=== PATIENT | male | born 1955 | race Two or more races ===

== ENCOUNTER 2020-03-01 13:35 | Emergency (ER) | payer MEDICARE, MEDICAID, OTHER ==
--- NOTE | 2020-03-01 13:59 | EDM.PDOC ---
ED HPI GENERAL MEDICAL PROBLEM - General Chief Complaint: General Stated Complaint: fall, pain Time Seen by Provider: 03/01/20 13:45 Source of Information: Reports: Patient, EMS, Old Records ([facility] chart/EMR), Other (belt fixer/POACammy). Denies: EMS Notes Reviewed (Not available at time of dictation) History Limitations: Reports: No Limitations - History of Present Illness INITIAL COMMENTS - FREE TEXT/NARRATIVE: The patient was brought to the emergency room via ambulance with cinder pitman accompaniment with no treatment in route. He is a somewhat poor historian with majority of history taken from his POA/caregiver, Cammy. Patient apparently stumbled near his bed at about 10 AM on 02/25 resulting in a fall with an additional fall despite use of his crutches later that afternoon. He has had progressive 10/10 left knee and left shoulder pain since that time with the patient refusing to come to this facility for evaluation until today. In addition, note increasing leg swelling and pain with previous history of recurrent postoperative osteomyelitis and multiple previous left knee surgeries as below. He denies any head injury, loss of consciousness, neck/back pain, change in his neurological status, or other complaints or injuries. The patient denies any chest pain/pressure, heart flutter, dizziness, orthostasis, orthopnea, diaphoresis, paresthesias, recent decreased exercise tolerance, or any other anginal-type symptoms. No recent history of abdominal pain, heartburn, nausea, diarrhea, melena, gross hematochezia, or any food intolerance, including fatty foods, etc.. The patient also denies any recent fever, cough, wheezing, dyspnea, etc.. He did take his regular scheduled medications this morning, including Celebrex, with additional 650 mg of Tylenol taken at 9 AM this morning Onset: Sudden Onset Date: 02/26/20 Onset Time: 10:00 Duration: Constant, Getting Worse Location: Reports: Upper Extremity, Left, Lower Extremity, Right. Denies: Head, Face, Neck, Chest, Abdomen, Back, Pelvis, Upper Extremity, Right, Radiates to Quality: Reports: Same as Previous Episode, Stabbing, Throbbing Severity: Severe Improves with: Reports: None Worsens with: Reports: None Context: Reports: Trauma (As above). Denies: Sick Contact Associated Symptoms: Reports: Confusion (Stable mental deficits), Rash. Denies: Chest Pain, Cough, Diaphoresis, Fever/Chills, Headaches, Loss of Appetite, Malaise, Nausea/Vomiting, Seizure, Shortness of Breath, Syncope, Weakness Treatments TRACK LABORER: Reports: Acetaminophen, NSAIDS, Other Medication(s) (Morning medications) Left Shoulder Pain Score (Numeric/FACES): 10 Left Knee Pain Score (Numeric/FACES): 10 - Related Data Allergies Allergy/AdvReac Type Severity Reaction Status Date / Time No Known Allergies Allergy Verified 03/01/20 13:37 Home Meds: Home Meds Acetaminophen 650 mg PO Q6H PRN 03/01/20 [History] Celecoxib 1 cap PO DAILY 03/01/20 [History] Cholecalciferol (Vitamin D3) [Vitamin D3] 1 cap PO DAILY 03/01/20 [History] Fish Oil/Borage/Flax/Om3,6,9 1 [[place] 3-6-9 1,200 mg Softgel] 1 cap PO DAILY 03/01/20 [History] Multivitamin [Multi-Vitamin Daily] 1 tab PO DAILY 03/01/20 [History] Sertraline [Zoloft] 100 mg PO DAILY 03/01/20 [History] atorvaSTATin Calcium [Atorvastatin Calcium] 40 mg PO BEDTIME 03/01/20 [History] Past Medical History HEENT History: Reports: Impaired Vision, Other (See Below) Other HEENT History: Patient wears glasses Cardiovascular History: Reports: High Cholesterol Respiratory History: Reports: Pneumonia, Recurrent Gastrointestinal History: Reports: GERD, GI Bleed, PUD Genitourinary History: Reports: BPH Musculoskeletal History: Reports: Amputation, Arthritis, Back Pain, Chronic, Fracture, Other (See Below) Other Musculoskeletal History: Right shoulder rotator cuff air with secondary pain. Right clavicular fracture. Possible bilateral knee fractures. Questionable broken right hand versus osteomyelitis requiring finger amputation as below. Neurological History: Reports: Concussion Psychiatric History: Reports: Addiction, Anxiety, Dementia (Probable alcoholic encephalopathy), PTSD, Other (See Below) Endocrine/Metabolic History: Reports: Obesity/BMI 30+ Dermatologic History: Reports: Cellulitis, Other (See Below) Other Dermatologic History: Reurrent cellulitis of the left knee including additional refractory postoperative probable osteomyelitis with multiple surgic al revisions as below. - Past Surgical History Musculoskeletal Surgical History: Reports: Amputation, Joint Replacement, Knee Replacement. 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 Left knee total arthroplasty with recurrent postoperative osteomyelitis of the left knee requiring multiple revisions, including multiple spacer replacements with last surgery August 2018 at the [facility] in [place]. Right knee total arthroplasty. Torn left Achilles surgery. Social & Family History - Tobacco Use Smoking Status *Q: Current Some Day Smoker Tobacco Use Within Last Twelve Months: Cigarettes Years of Tobacco use: 54 Packs/Tins Daily: 0.3 Used Tobacco, but Quit: No Smoking Cessation Information Provided To Patient: Yes (To be provided by accepting providers at discharge from their facility) Second Hand Smoke Exposure: No - Caffeine Use Caffeine Use: Reports: Coffee, Energy Drinks, Soda, Tea Caffeine Use Comment: Coffee- 3-4 cups day, tea occasionally, energy drinks 1can day, soda occasionally. - Alcohol Use Alcohol Use History: Yes Days Per Week of Alcohol Use: 0 Number of Drinks Per Day Comment: History of alcohol abuse between ages 17 and 57 with no use since 2011. Alcohol Use in Last Twelve Months: No - Recreational Drug Use Recreational Drug Use: Yes Drug Use in Last 12 Months: Yes Recreational Drug Type: Reports: Marijuana/Hashish Recreational Drug Use Frequency: Daily Recreational Drug Route: Reports: Inhaled - Living Situation & Occupation Living situation: Reports: (x 4 with 2 children), Alone (Although he does have a caregiver and Cammy GUTIÉRREZ.) Occupation: Disabled (secondary to his osteoarthritis and probable alcoholic encephalopathy) ED ROS GENERAL - Review of Systems Review Of Systems: Comprehensive ROS is negative, except as noted in HPI. ED EXAM, GENERAL - Physical Exam Exam: See Below Exam Limited By: No Limitations General Appearance: Alert, WD/WN, No Apparent Distress Eye Exam: Bilateral Eye: EOMI, PERRL, Other (Patient wearing glasses. No nystagmus. Borderline scleral icterus) Throat/Mouth: Normal Inspection, Normal Lips, Normal Teeth, Normal Gums, Normal Oropharynx, Normal Voice, No Airway Compromise. No: Dysphagia, Perioral Cyanosis Head: Atraumatic, Normocephalic. No: Facial Swelling, Facial Tenderness, Sinus Tenderness Neck: Normal Inspection, Supple, Non-Tender, Full Range of Motion. No: Lymphadenopathy (L), Lymphadenopathy (R), Thyromegaly Respiratory/Chest: No Respiratory Distress, Lungs Clear, Normal Breath Sounds, No Accessory Muscle Use, Chest Non-Tender. No: Pleural Rub, Retractions Cardiovascular: Normal Peripheral Pulses, Regular Rate, Rhythm, No Edema, No Gallop, No JVD, No Murmur, No Rub. No: Gallop/S3, Gallop/S4, Friction Rub Peripheral Pulses: 2+: Radial (L), Radial (R), Dorsalis Pedis (L), Dorsalis Pedis (R) GI/Abdominal: Normal Bowel Sounds, Soft, Non-Tender, No Organomegaly, No Distention, No Abnormal Bruit, No Mass, Pelvis Stable, Other (Obese). No: Guarding (Male) Exam: Deferred Rectal (Males) Exam: Deferred Back Exam: Normal Inspection, Full Range of Motion. No: CVA Tenderness (L), CVA Tenderness (R), Muscle Spasm Extremities: Normal Capillary Refill, Pedal Edema (+1 pedal/pretibial edema with severe effusion, mild local warming, and severe localized palpation pain over the left knee. Moderate ecchymosis in this area with some joint instability and deformity based on limited exam. +2 erythema extending from the distal aspect of the left femur to the superior aspect of the left ankle with possible lymp hangitis component. Moderate ecchymosis and tenderness over the anterior left shoulder with chronic decreased range of motion but no evidence of dislocation, deformity, etc.), Joint Swelling, Arm Pain, Leg Pain, Limited Range of Motion, Increased Warmth, Redness. No: Kyleigh's Sign Neurological: Alert, Oriented, No Motor/Sensory Deficits, Confused (As above). No: Normal Cognition (Possible encephalopathy baseline?), Normal Gait (Unable to ambulate secondary to leg injury) Psychiatric: Anxious (Mild), Depressed Mood (Mild) Skin Exam: Intact, Ecchymosis, Increased Warmth, Lymphangitis, Rash, Tattoo(s) (Multiple). No: Diaphoretic, Petechiae, Wound/Incision Lymphatic: No Adenopathy Course - Vital Signs Last Recorded V/S: Last Vital Signs Temp 36.8 C 03/01/20 13:37 Pulse 95 03/01/20 17:45 Resp 20 03/01/20 17:45 BP 141/71 H 03/01/20 17:45 Pulse Ox 93 L 03/01/20 17:45 Vital Signs - 24 hr 03/01/20 03/01/20 03/01/20 13:37 13:45 14:00 Temperature [ 36.8 C Oral] Pulse, 95 93 94 Peripheral [ Left Pulse Oximetry] Respiratory 18 16 16 Rate Blood Pressure 124/76 138/63 133/71 [Left Upper Arm ] O2 Sat by Pulse 95 91 L 94 L Oximetry 03/01/20 03/01/20 03/01/20 14:15 14:30 14:45 Temperature [ Oral] Pulse, 91 94 91 Peripheral [ Left Pulse Oximetry] Respiratory 18 16 16 Rate Blood Pressure 127/72 131/66 125/75 [Left Upper Arm ] O2 Sat by Pulse 92 L 94 L 96 Oximetry 03/01/20 03/01/20 03/01/20 15:00 15:15 15:30 Temperature [ Oral] Pulse, 88 88 90 Peripheral [ Left Pulse Oximetry] Respiratory 17 17 17 Rate Blood Pressure 131/67 128/69 127/70 [Left Upper Arm ] O2 Sat by Pulse 95 92 L 92 L Oximetry 03/01/20 03/01/20 03/01/20 15:45 16:00 16:15 Temperature [ Oral] Pulse, 87 90 92 Peripheral [ Left Pulse Oximetry] Respiratory Rate Blood Pressure 131/70 133/70 133/71 [Left Upper Arm ] O2 Sat by Pulse 94 L Oximetry 03/01/20 03/01/20 03/01/20 16:30 16:45 17:00 Temperature [ Oral] Pulse, 89 92 93 Peripheral [ Left Pulse Oximetry] Respiratory Rate Blood Pressure 126/70 128/70 135/69 [Left Upper Arm ] O2 Sat by Pulse Oximetry 03/01/20 03/01/20 03/01/20 17:15 17:30 17:45 Temperature [ Oral] Pulse, 92 92 95 Peripheral [ Left Pulse Oximetry] Respiratory 18 20 Rate Blood Pressure 130/71 139/65 141/71 H [Left Upper Arm ] O2 Sat by Pulse 94 L 93 L Oximetry - Orders/Labs/Meds Orders: Active Orders 24 hr Category Date Time Status Peripheral IV Care [RC] . DIRECTED Care 03/01/20 14:36 Active Knee 1V or 2V Lt [CR] Stat Exams 03/01/20 14:00 Taken Shoulder Comp Lt [CR] Stat Exams 03/01/20 14:01 Taken CULTURE BLOOD [BC] Stat Lab 03/01/20 14:10 Received CULTURE BLOOD [BC] Stat Lab 03/01/20 15:05 Received Lactated Ringers [Ringers, Lactated] 1,000 ml Med 03/01/20 17:30 Active IV ASDIRECTED Sodium Chloride 0.9% [Saline Flush] Med 03/01/20 14:36 Active 10 ml FLUSH ASDIRECTED PRN Blood Culture x2 Reflex Set [OM.PC] Urgent Oth 03/01/20 14:51 Ordered Obtain Past Medical Record [OM.PC] Routine Oth 03/01/20 14:00 Active Peripheral IV Insertion Adult [OM.PC] Routine Oth 03/01/20 14:36 Ordered Medication Orders Lactated Ringer's (Ringers, Lactated) 1,000 mls @ 80 mls/hr IV ASDIRECTED MIK Last Admin: 03/01/20 17:20 Dose: 80 mls/hr Documented by: ANJALI Sodium Chloride (Saline Flush) 10 ml FLUSH ASDIRECTED PRN PRN Reason: Keep Vein Open Last Admin: 03/01/20 15:45 Dose: 10 ml Documented by: Admin: 03/01/20 15:14 Dose: 10 ml Documented by: AXEL Labs: Laboratory Tests 03/01/20 03/01/20 03/01/20 Range/Units 14:00 14:10 14:10 WBC 24.2 H (4.0-10.2) K/uL RBC 3.51 L (4.33-5.41) M/uL Hgb 11.2 L D (13.1-16.8) g/dL Hct 31.4 L (39.0-49.0) % MCV 89.5 (84.0-98.0) fL MCH 31.9 (28.2-33.3) pg MCHC 35.7 (31.7-36.0) g/dL RDW 13.7 (11.2-14.1) % Plt Count 337 D (150-350) K/uL Neut % (Auto) 88.1 H (45.0-80.0) % Lymph % (Auto) 5.4 L (10.0-50.0) % [place] % (Auto) 6.1 (2.0-14.0) % Eos % (Auto) 0.2 (0.0-5.0) % Baso % (Auto) 0.2 (0.0-2.0) % Neut # (Auto) 21.33 H (1.40-7.00) K/uL Lymph # (Auto) 1.31 (0.50-3.50) K/uL [place] # (Auto) 1.49 H (0.00-1.00) K/uL Eos # (Auto) 0.06 (0.00-0.50) K/uL Baso # (Auto) 0.05 (0.00-0.20) K/uL PT (9.5-12.0) SEC INR APTT (24.5-32.8) SEC Sodium 135 L (136-145) mmol/L Potassium 3.4 L (3.5-5.1) mmol/L Chloride 97 L (98-107) mmol/L Carbon Dioxide 27.2 (21.0-32.0) mmol/L BUN 22 H (7-18) mg/dL Creatinine 0.99 (0.51-1.17) mg/dL Est Cr Clr Drug Dosing TNP Estimated GFR (MDRD) > 60 mL/min Glucose 135 H (74-106) mg/dL Lactic Acid (0.4-2.0) mmol/L Uric Acid (2.6-7.2) mg/dL Calcium 8.6 (8.5-10.1) mg/dL Total Bilirubin 2.3 H (0.2-1.0) mg/dL Direct Bilirubin (0.0-0.2) mg/dL Indirect Bilirubin AST 147 H (15-37) U/L ALT 196 H (12-78) U/L Alkaline Phosphatase 348 H (46-116) IU/L C-Reactive Protein (<=0.9) mg/dL Total Protein 7.5 (6.4-8.2) g/dL Albumin 1.8 L (3.4-5.0) g/dL Amylase (25-115) U/L Lipase (73-393) U/L Ethyl Alcohol 0.001 (0.000-0.080) g/dL 06/18/20 06/18/20 06/18/20 Range/Units 14:10 14:10 14:10 WBC (4.0-10.2) K/uL RBC (4.33-5.41) M/uL Hgb (13.1-16.8) g/dL Hct (39.0-49.0) % MCV (84.0-98.0) fL MCH (28.2-33.3) pg MCHC (31.7-36.0) g/dL RDW (11.2-14.1) % Plt Count (150-350) K/uL Neut % (Auto) (45.0-80.0) % Lymph % (Auto) (10.0-50.0) % [place] % (Auto) (2.0-14.0) % Eos % (Auto) (0.0-5.0) % Baso % (Auto) (0.0-2.0) % Neut # (Auto) (1.40-7.00) K/uL Lymph # (Auto) (0.50-3.50) K/uL [place] # (Auto) (0.00-1.00) K/uL Eos # (Auto) (0.00-0.50) K/uL Baso # (Auto) (0.00-0.20) K/uL PT 11.3 (9.5-12.0) SEC INR 1.1 APTT 29.2 (24.5-32.8) SEC Sodium (136-145) mmol/L Potassium (3.5-5.1) mmol/L Chloride (98-107) mmol/L Carbon Dioxide (21.0-32.0) mmol/L BUN (7-18) mg/dL Creatinine (0.51-1.17) mg/dL Est Cr Clr Drug Dosing Estimated GFR (MDRD) mL/min Glucose (74-106) mg/dL Lactic Acid 0.5 (0.4-2.0) mmol/L Uric Acid 4.5 (2.6-7.2) mg/dL Calcium (8.5-10.1) mg/dL Total Bilirubin (0.2-1.0) mg/dL Direct Bilirubin (0.0-0.2) mg/dL Indirect Bilirubin AST (15-37) U/L ALT (12-78) U/L Alkaline Phosphatase (46-116) IU/L C-Reactive Protein 18.0 H (<=0.9) mg/dL Total Protein (6.4-8.2) g/dL Albumin (3.4-5.0) g/dL Amylase (25-115) U/L Lipase (73-393) U/L Ethyl Alcohol (0.000-0.080) g/dL 03/01/20 Range/Units 14:10 WBC (4.0-10.2) K/uL RBC (4.33-5.41) M/uL Hgb (13.1-16.8) g/dL Hct (39.0-49.0) % MCV (84.0-98.0) fL MCH (28.2-33.3) pg MCHC (31.7-36.0) g/dL RDW (11.2-14.1) % Plt Count (150-350) K/uL Neut % (Auto) (45.0-80.0) % Lymph % (Auto) (10.0-50.0) % [place] % (Auto) (2.0-14.0) % Eos % (Auto) (0.0-5.0) % Baso % (Auto) (0.0-2.0) % Neut # (Auto) (1.40-7.00) K/uL Lymph # (Auto) (0.50-3.50) K/uL [place] # (Auto) (0.00-1.00) K/uL Eos # (Auto) (0.00-0.50) K/uL Baso # (Auto) (0.00-0.20) K/uL PT (9.5-12.0) SEC INR APTT (24.5-32.8) SEC Sodium (136-145) mmol/L Potassium (3.5-5.1) mmol/L Chloride (98-107) mmol/L Carbon Dioxide (21.0-32.0) mmol/L BUN (7-18) mg/dL Creatinine (0.51-1.17) mg/dL Est Cr Clr Drug Dosing Estimated GFR (MDRD) mL/min Glucose (74-106) mg/dL Lactic Acid (0.4-2.0) mmol/L Uric Acid (2.6-7.2) mg/dL Calcium (8.5-10.1) mg/dL Total Bilirubin 2.4 H (0.2-1.0) mg/dL Direct Bilirubin 1.8 H (0.0-0.2) mg/dL Indirect Bilirubin 0.6 AST (15-37) U/L ALT (12-78) U/L Alkaline Phosphatase (46-116) IU/L C-Reactive Protein (<=0.9) mg/dL Total Protein (6.4-8.2) g/dL Albumin (3.4-5.0) g/dL Amylase 48 (25-115) U/L Lipase 164 (73-393) U/L Ethyl Alcohol (0.000-0.080) g/dL Blood cultures 2 were collected D-dimer could not be assessed secondary to equipment problems/specimen interference? Meds: Medications Generic Name Dose Route Start Last Admin Trade Name Freq PRN Reason Stop Dose Admin Lactated Ringer's 1,000 mls @ 80 mls/hr 03/01/20 17:30 03/01/20 17:20 Ringers, Lactated IV 80 mls/hr ASDIRECTED MIK Administration Sodium Chloride 10 ml 03/01/20 14:36 03/01/20 15:45 Saline Flush FLUSH 10 ml ASDIRECTED PRN Administration Keep Vein Open Discontinued Medications Generic Name Dose Route Start Last Admin Trade Name Freq PRN Reason Stop Dose Admin Hydromorphone HCl 1 mg 03/01/20 15:09 03/01/20 15:14 Dilaudid IVPUSH 03/01/20 15:10 1 mg ONETIME ONE Administration Vancomycin HCl 1.5 gm/ Premix 300 mls @ 200 mls/hr 03/01/20 15:17 03/01/20 15:38 IV 03/01/20 16:46 200 mls/hr ONETIME ONE Administration Ondansetron HCl 4 mg 03/01/20 15:09 03/01/20 15:14 Zofran IVPUSH 03/01/20 15:10 4 mg ONETIME ONE Administration - Radiology Interpretation Free Text/Narrative:: My evaluation of the X-rays of the left knee, 2 views, shows evidence of status post total knee arthroplasty with probable distal femoral fracture at the arthroplasty site but no direct evidence of loosening. Official x-ray report does not indicate an acute fracture, however. X-rays of the left shoulder, 2 views, shows no evidence of fracture or dislocation, however moderate osteoarthritic changes. No evidence of AC joint separation, etc. Departure - Departure Time of Disposition: 18:05 Disposition: DC/Tfer to [facility] 02 Condition: Fair Clinical Impression: Elevated LFTs, Hypokalemia, Mixed anxiety depressive disorder, Alcoholic encephalopathy, Hypoalbuminemia, Peptic reflux disease Closed fracture of left distal tibia Qualifiers: Encounter type: initial encounter Fracture morphology: other fracture Qualified Code(s): S82.392A - Other fracture of lower end of left tibia, initial encounter for closed fracture Contusion of left shoulder Qualifiers: Encounter type: initial encounter Qualified Code(s): S40.012A - Contusion of left shoulder, initial encounter Osteoarthritis Qualifiers: Osteoarthritis location: multiple joints Osteoarthritis type: primary Qualified Code(s): M89.49 - Other hypertrophic osteoarthropathy, multiple sites Osteomyelitis Qualifiers: Osteomyelitis type: other acute Osteomyelitis location: tibia Laterality: left Qualified Code(s): M86.162 - Other acute osteomyelitis, left tibia and fibula Anemia Qualifiers: Anemia type: unspecified type Qualified Code(s): D64.9 - Anemia, unspecified - Discharge Information *PRESCRIPTION DRUG MONITORING PROGRAM REVIEWED*: Not Applicable *COPY OF PRESCRIPTION DRUG MONITORING REPORT IN PATIENT MREY: Not Applicable Referrals: Uriel Arce MD [Primary Care Provider] - Forms: ED Department Discharge, Interfacility Transfer [facility] Sepsis Event Note (ED) - Evaluation Sepsis Screening Result: No Definite Risk - Focused Exam Vital Signs: Vital Signs Temp Pulse Resp BP Pulse Ox 03/01/20 17:45 95 20 141/71 H 93 L 03/01/20 17:30 92 18 139/65 94 L 03/01/20 17:15 92 130/71 03/01/20 17:00 93 135/69 03/01/20 16:45 92 128/70 03/01/20 16:30 89 126/70 03/01/20 16:15 92 133/71 03/01/20 16:00 90 133/70 03/01/20 15:45 87 131/70 94 L 03/01/20 15:30 90 17 127/70 92 L 03/01/20 15:15 88 17 128/69 92 L 03/01/20 15:00 88 17 131/67 95 03/01/20 14:45 91 16 125/75 96 03/01/20 14:30 94 16 131/66 94 L 03/01/20 14:15 91 18 127/72 92 L 03/01/20 14:00 94 16 133/71 94 L 03/01/20 13:45 93 16 138/63 91 L 03/01/20 13:37 36.8 C 95 18 124/76 95 - Problem List & Annotations (1) Closed fracture of left distal tibia SNOMED Code(s): 380907072, 25719358853519521 Code(s): S82.302A - UNSP FRACTURE OF LOWER END OF LEFT TIBIA, INIT FOR CLOS FX Status: Acute Priority: High Current Visit: Yes Onset Date: 02/26/20 Annotation/Comment:: My review of the x-ray today did indicate a possible acute distal femoral fracture as above, however radiological report does not indicate an acute fracture. [facility] [place], i ncluding at 14:54, 15:00, 15:05, and 15:15 with difficulty obtaining proper connection to accepting providers. I did eventually reach Michael the home care scheduler with subsequent telephone consultation at 15:[address] Lamar, hospitalist, who is not certain whether she could accept the patient. She did consult with their orthopedic department with subsequent telephone consultation with Michael at 16:00 hours stating that they could not accept the patient for treatment in their facility. Approval is granted for transfer to another facility. Subsequent telephone consultation at 16:[address] Molina, emergency room physician at [facility] in [place], who does accept the patient for direct admission into their facility, with no further treatment recommendations given. He will contact their hospitalist concerning this patient's transfer, etc.. Despite significant delay in patient's transfer secondary to the above problems, no sequelae with stable vital signs and clinical exam at time of transfer. Note IV Zofran and IV Dilaudid given for pain control during his emergency room care. Qualifiers: Encounter type: initial encounter Fracture morphology: other fracture Qualified Code(s): S82.392A - Other fracture of lower end of left tibia, initial encounter for closed fracture (2) Osteomyelitis SNOMED Code(s): 07720873 Code(s): M86.9 - OSTEOMYELITIS, UNSPECIFIED Status: Acute Priority: High Current Visit: Yes Onset Date: ~03/01/20 Annotation/Comment:: Suspected return of his previous recurrent osteomyelitis with at least significant cellulitis with no known cutaneous injury, etc.. Significant leukocytosis and CRP elevation with no clinical evidence of sepsis and normal lactic acid level. IV vancomycin dosed by our pharmacist with dose given in the emergency room and completed prior to patient's transfer. Further orthopedic/infectious disease consultations advisable. Qualifiers: Osteomyelitis type: other acute Osteomyelitis location: tibia Laterality: left Qualified Code(s): M86.162 - Other acute osteomyelitis, left tibia and fibula (3) Alcoholic encephalopathy SNOMED Code(s): 327753920 Code(s): G31.2 - DEGENERATION OF NERVOUS SYSTEM DUE TO ALCOHOL; F10.20 - ALCOHOL DEPENDENCE, UNCOMPLICATED Status: Chronic Priority: Medium Current Visit: Yes Annotation/Comment:: He is a poor historian. Note current caregiver/POA care with stable mental status by her history. (4) Contusion of left shoulder SNOMED Code(s): 90550180 Code(s): S40.012A - CONTUSION OF LEFT SHOULDER, INITIAL ENCOUNTER Status: Acute Priority: Medium Current Visit: Yes Onset Date: 02/26/20 Annotation/Comment:: Negative x-rays as above. Observe for now with patient having a history of chronic bilateral shoulder pain. He is apparently considering left shoulder surgery in the near future. Qualifiers: Encounter type: initial encounter Qualified Code(s): S40.012A - Contusion of left shoulder, initial encounter (5) Elevated LFTs SNOMED Code(s): 315514428, 703638272 Code(s): R79.89 - OTHER SPECIFIED ABNORMAL FINDINGS OF BLOOD CHEMISTRY Status: Acute Priority: High Current Visit: Yes Onset Date: 03/01/20 Annotation/Comment:: No clinical findings or physical complaints with no known previous history of LFTs elevation. Consider hyperlipidemia/fatty liver, possible chronic alcoholic hepatitis, etc. with further workup by accepting providers, including possible abdominal ultrasound, CT scan of the abdomen, ERCP, etc. depending on his clinical course. Note normal amylase and lipase with problems determining d-dimer at this time secondary to equipment problems, although his INR and PTT were normal. (6) Hypokalemia SNOMED Code(s): 64103714 Code(s): E87.6 - HYPOKALEMIA Status: Acute Priority: Medium Current Visit: Yes Onset Date: 03/01/20 Annotation/Comment:: Lactated Ringer's IV in route. Note additional mild hyponatremia. (7) Mixed anxiety depressive disorder SNOMED Code(s): 915886807 Code(s): F41.8 - OTHER SPECIFIED ANXIETY DISORDERS Status: Chronic Priority: Medium Current Visit: Yes Annotation/Comment:: Stable by patient and his caregiver's history. (8) Osteoarthritis SNOMED Code(s): 223839052 Code(s): M19.90 - UNSPECIFIED OSTEOARTHRITIS, UNSPECIFIED SITE Status: Chronic Priority: Medium Current Visit: Yes Annotation/Comment:: Otherwise stable by history Qualifiers: Osteoarthritis location: multiple joints Osteoarthritis type: primary Qualified Code(s): M89.49 - Other hypertrophic osteoarthropathy, multiple sites (9) Hypoalbuminemia SNOMED Code(s): 267065966 Code(s): E88.09 - OTH DISORDERS OF PLASMA-PROTEIN METABOLISM, NEC Status: Acute Priority: Medium Current Visit: Yes Onset Date: 03/01/20 Annotation/Comment:: Observe for now. (10) Anemia SNOMED Code(s): 486785611 Code(s): D64.9 - ANEMIA, UNSPECIFIED Status: Acute Priority: Medium Current Visit: Yes Onset Date: 03/01/20 Annotation/Comment:: Mild. Observe for now. No abdominal complaints or evidence of GI bleed, etc. Qualifiers: Anemia type: unspecified type Qualified Code(s): D64.9 - Anemia, unspecified (11) Peptic reflux disease SNOMED Code(s): 081292838 Code(s): K21.9 - GASTRO-ESOPHAGEAL REFLUX DISEASE WITHOUT ESOPHAGITIS Status: Chronic Priority: Medium Current Visit: Yes Annotation/Comment:: Stable by history as above. - Problem List Review Problem List Initiated/Reviewed/Updated: Yes - My Orders Last 24 Hours: My Active Orders 03/01/20 14:00 Knee 1V or 2V Lt [CR] Stat Obtain Past Medical Record [OM.PC] Routine 03/01/20 14:01 Shoulder Comp Lt [CR] Stat 03/01/20 14:10 CULTURE BLOOD [BC] Stat 03/01/20 14:36 Peripheral IV Care [RC] . DIRECTED Sodium Chloride 0.9% [Saline Flush] 10 ml FLUSH ASDIRECTED PRN Peripheral IV Insertion Adult [OM.PC] Routine 03/01/20 14:51 Blood Culture x2 Reflex Set [OM.PC] Urgent 03/01/20 15:05 CULTURE BLOOD [BC] Stat 03/01/20 17:30 Lactated Ringers [Ringers, Lactated] 1,000 ml IV ASDIRECTED - Assessment/Plan Last 24 Hours: My Active Orders 03/01/20 14:00 Knee 1V or 2V Lt [CR] Stat Obtain Past Medical Record [OM.PC] Routine 03/01/20 14:01 Shoulder Comp Lt [CR] Stat 03/01/20 14:10 CULTURE BLOOD [BC] Stat 03/01/20 14:36 Peripheral IV Care [RC] . DIRECTED Sodium Chloride 0.9% [Saline Flush] 10 ml FLUSH ASDIRECTED PRN Peripheral IV Insertion Adult [OM.PC] Routine 03/01/20 14:51 Blood Culture x2 Reflex Set [OM.PC] Urgent 03/01/20 15:05 CULTURE BLOOD [BC] Stat 03/01/20 17:30 Lactated Ringers [Ringers, Lactated] 1,000 ml IV ASDIRECTED Assessment:: As above Plan: As above. Extensive precautions were given to the patient and his caregiver/POA, who are in agreement with the treatment plan. Ambulance transfer via [facility] accompaniment to [facility] as above.
[2020-03-01 14:39] LABS: PTT,PARTIAL THROMBOPLSTIN TIME 29.2 SEC (24.5-32.8)
[2020-03-01 14:41] LABS: CHLORIDE,CL 97 mmol/L (98-107); SODIUM,NA 135 mmol/L (136-145)
[2020-03-01] MEDS ORDERED: Ondansetron 4 MG/2 ML SDV IVPUSH ONE (15:09)
[2020-03-01] MEDS ORDERED: HYDROmorphone 1 MG/ML Syringe IVPUSH ONE (15:09)
[2020-03-01] MEDS: Sodium Chloride 0.9% 10 ML Syringe FLUSH PRN ×2 (15:14→15:45)
[2020-03-01] MEDS ORDERED: Lactated Ringers 1,000 ML IV SCH (17:30)
[2020-03-01 18:12] VITALS: BP 141/71; PULSE 95
== END 2020-03-01 18:05 ==
LOC: LL.ED 13:35
DX: S82.392A Other fracture of lower end of left tibia, initial encounter for closed fracture (principal); S40.012A Contusion of left shoulder, initial encounter; M89.49 Other hypertrophic osteoarthropathy, multiple sites; M86.162 Other acute osteomyelitis, left tibia and fibula; D64.9 Anemia, unspecified; R79.89 Other specified abnormal findings of blood chemistry; E87.6 Hypokalemia; F41.8 Other specified anxiety disorders; G31.2 Degeneration of nervous system due to alcohol; E88.09 Other disorders of plasma-protein metabolism, not elsewhere classified; K21.9 Gastro-esophageal reflux disease without esophagitis; E78.00 Pure hypercholesterolemia, unspecified; F03.90 Unspecified dementia, unspecified severity, without behavioral disturbance, psychotic disturbance, mood disturbance, and anxiety; E66.9 Obesity, unspecified; Z68.35 Body mass index [BMI] 35.0-35.9, adult; F17.210 Nicotine dependence, cigarettes, uncomplicated; W06.XXXA Fall from bed, initial encounter
CPT/HCPCS: 36415; 73030-LT; 73560-LT; 80053; 80307; 82150; 82247; 82248; 83605; 83690; 84550; 85025; 85610; 85730; 86140; 87040; 87077; 87186; 96365; 96375; 99285-25; J1170; J2405; J3370; J7120